=== PATIENT | male | born 1990 | race Caucasian/White ===

== ENCOUNTER 2021-12-27 15:51 | Emergency (ER) | payer BC ==
[~2021-12-27] VITALS: Ht 175.3 cm; Wt 73.5 kg
[2021-12-27 16:02] VITALS: BP 140/90
--- NOTE | 2021-12-27 16:07 | NUR ---
Patient ambulated to bed 5 with steady gait.
[2021-12-27] MEDS ORDERED: NEOMYCIN/POLYMYXIN/BACITRACIN 0.9 GM/1 PKT TP ONE (16:16)
[2021-12-27] MEDS ORDERED: LIDOCAINE 2% 1000 MG/50 ML VIAL INJ ONE (16:20)
--- NOTE | 2021-12-27 16:24 | NUR ---
MOVED TO ER BED 4
--- NOTE | 2021-12-27 16:25 | NUR ---
Vivek motnoya in [facility] - 12/27/21 at 1626 by [email or web address] PT MOVED TO ER BED 4
[2021-12-27] MEDS ORDERED: BACITRACIN OINT 500 UNITS/GM PKT TP ONE (16:27)
--- NOTE | 2021-12-27 16:31 | NUR ---
31 Y/O MALE BIB SELF C/O R HAND LACERATION X TODAY WHILE AT WORK. PT STATES HE WAS CUTTING METAL AND CUT HIS HAND. PT REPORTS GETTING TETANUS VACCINE YESTERDAY. DENIES PAIN, NUMBNESS, TINGLING. CONTROLLED BLEEDING AT THIS TIME. CP REFILL <3 SECONDS, +2 RADIAL PULSES. FULL ROM. PT DENIES CLEANING WOUND PRIOR TO ARRIVAL. PT A/O X4 WITH EVEN AND UNLABORED RESPIRATIONS. PMH:DENIES MEDS:DENIES NKA
--- NOTE | 2021-12-27 17:03 | NUR ---
DR LUEVANO AT BEDSIDE FOR PROCEDURE
[2021-12-27] MEDS ORDERED: BACI1PAC6 TP (17:25)
--- NOTE | 2021-12-27 17:39 | NUR ---
Patient discharged with v/s stable. Written and verbal after care instructions ABOUT LACERATION CAREgiven and explained. Patient alert, oriented and verbalized understanding of instructions. Ambulatory with steady gait. All questions addressed prior to discharge. ID band removed. Patient advised to follow up with PMD. Rx of BACITRACIN given. Patient educated on indication of medication including possible reaction and side effects. Opportunity to ask questions provided and answered.
== END 2021-12-27 17:39 | disposition home or self-care (01) ==
LOC: MED 15:51
DX: S61.411A Laceration without foreign body of right hand, initial encounter (principal); Z79.899 Other long term (current) drug therapy; W45.8XXA Other foreign body or object entering through skin, initial encounter; Y93.89 Activity, other specified; Y92.89 Other specified places as the place of occurrence of the external cause; Y99.8 Other external cause status
CPT/HCPCS: 12001; 73130; 99283; J2001

== ENCOUNTER 2022-03-04 19:43 | Emergency (ER) | payer BC ==
[~2022-03-04] VITALS: Ht 175.3 cm; Wt 77.6 kg
[~2022-03-04 19:43] MED LIST: BACI1PAC6 TP
[2022-03-04 19:53] VITALS: BP 150/104
--- NOTE | 2022-03-04 20:38 | NUR ---
ERASTO CRAWFORD called patient, no show in lobby or outside.
--- NOTE | 2022-03-04 21:08 | NUR ---
Dr. Lewis examining patient.
[2022-03-04] MEDS ORDERED: cefTRIAXone 500 MG in LIDOCAINE MPF 1% 1 ML IM ONE (21:25)
[2022-03-04] MEDS ORDERED: cefTRIAXone 500 MG VIAL ONE (21:28)
[2022-03-04] MEDS ORDERED: LIDOCAINE MPF 1% 5 ML ONE (21:29)
[2022-03-04 21:58] LABS: APPEARANCE,URINE CLEAR (CLEAR); BILIRUBIN,URINE NEGATIVE (NEGATIVE); BLOOD, URINE NEGATIVE (NEGATIVE); COLOR,URINE YELLOW (YELLOW); LEUKOCYTE ESTERASE ,URINE NEGATIVE (NEGATIVE); NITRITE, URINE NEGATIVE (NEGATIVE); UGLUCOSE NEGATIVE (NEGATIVE)
[2022-03-04] MEDS ORDERED: METR-435 PO (22:15)
[2022-03-04] MEDS ORDERED: DOXY100T9 PO (22:15)
[2022-03-04 22:27] VITALS: BP 136/92
--- NOTE | 2022-03-04 22:27 | NUR ---
Patient discharged with v/s stable. Written and verbal after care instructions given and explained. Patient alert, oriented and verbalized understanding of instructions. Ambulatory with steady gait. All questions addressed prior to discharge. ID band removed. Patient advised to follow up with PMD. Rx of Doxycycline and Metronidazole given. Patient educated on indication of medication including possible reaction and side effects. Opportunity to ask questions provided and answered.
== END 2022-03-04 22:27 | disposition home or self-care (01) ==
LOC: MED 19:43
DX: R30.9 Painful micturition, unspecified (principal); Z20.2 Contact with and (suspected) exposure to infections with a predominantly sexual mode of transmission; Z79.899 Other long term (current) drug therapy
CPT/HCPCS: 81003; 86703; 87491; 96372; 99283; J0696; J2001

== ENCOUNTER 2022-05-17 16:15 | Emergency (ER) | payer BC ==
[~2022-05-17] VITALS: Ht 172.7 cm; Wt 79.4 kg
[~2022-05-17 16:15] MED LIST changes: +DOXY100T9 PO; +METR-435 PO
[2022-05-17 16:31] VITALS: BP 133/76
--- NOTE | 2022-05-17 17:26 | NUR ---
PATIENT LEFT WITHOUT BEING SEEN BY DR. CHANEY. NO FURTHER CARE PROVIDED FOR PATIENT.
[2022-05-17] MEDS ORDERED: ALBUTEROL 0.083% 2.5 MG/3 ML NEBU INH ONE (18:05)
[2022-05-17] MEDS ORDERED: ALBU0.0912 IH (18:41)
[2022-05-17] MEDS ORDERED: INHA1SPA24 MC (18:41)
[2022-05-17] MEDS ORDERED: PRED20TA5 PO (18:41)
[2022-05-17] MEDS ORDERED: AZIT250T4 PO (18:41)
[2022-05-17] MEDS ORDERED: IBUP-2213 PO (18:51)
--- NOTE | 2022-05-17 19:25 | NUR ---
covid-19 and flu swabs collected and sent to lab.
[2022-05-17 19:28] VITALS: BP 128/74
--- NOTE | 2022-05-17 19:28 | NUR ---
Patient discharged with v/s stable. Written and verbal after care instructions given and explained. Patient alert, oriented and verbalized understanding of instructions. Ambulatory with steady gait. All questions addressed prior to discharge. ID band removed. Patient advised to follow up with PMD. Rx of Prednisone, Albuterol , Ibruprofen and Azithromycin given. Patient educated on indication of medication including possible reaction and side effects. Opportunity to ask questions provided and answered.
== END 2022-05-17 19:28 | disposition home or self-care (01) ==
LOC: MED 16:15
DX: J20.8 Acute bronchitis due to other specified organisms (principal); Z20.822 Contact with and (suspected) exposure to COVID-19; M94.0 Chondrocostal junction syndrome [Tietze]
CPT/HCPCS: 71045; 87426; 87804; 94644; 99284; J7613